=== PATIENT | female | born 1970 | race Caucasian/White ===

== ENCOUNTER 2016-11-12 08:56 | Emergency (ER) | payer BC, OTHER ==
[2016-11-12 09:06] VITALS: BP 131/95
--- NOTE | 2016-11-12 10:26 | UC ---
Abdominal Pain Female HPI - HPI Summary HPI Summary: complaint of LLQ pain thta started last night night and is worsening constant severe pain that starts in LLQ and radiates into LUQ severe constant stabbing pain ast BM this morning -normal - no blood in stool denies feevr and chills denies dysuria, back pain denies nausea and vomiting denies abnormal vaginal discharge hasn't taken any medication for pain LMP 10/23/16 - History of Current Complaint Hx Obtained From: Patient Hx Last Menstrual Period: 10/23/16 <Willa Brady - Last Filed: 11/12/16 10:38> <Meghan Johnson - Last Filed: 11/12/16 11:16> - History of Current Complaint Chief Complaint: UCAbdominalPain Stated Complaint: ABDOMINAL PAIN Time Seen by Provider: 11/12/16 10:21 Allergies/Adverse Reactions: Allergies Allergy/AdvReac Type Severity Reaction Status Date / Time Cephalexin [From Keflex] Allergy Severe Vomiting Verified 11/12/16 11:03 PMH/Surg Hx/FS Hx/Imm Hx Previously Healthy: Yes - Surgical History Surgical History: Yes Surgery Procedure, Year, and Place: C-SECTIONS X2, APPENDECTOMY - Family History Known Family History: Negative: Cardiac Disease, Hypertension, Diabetes - Social History Occupation: Employed Full-time Lives: With Family Alcohol Use: None Substance Use Type: None Smoking Status (MU): Current Every Day Smoker Type: Cigarettes Amount Used/How Often: 1/2 PPD Length of Time of Smoking/Using Tobacco: 20 YEARS Have You Smoked in the Last Year: Yes Cessation Counseling: Patient Advised to Stop <Willa Brady - Last Filed: 11/12/16 10:38> Review of Systems Constitutional: Negative Skin: Negative Eyes: Negative ENT: Negative Respiratory: Negative Cardiovascular: Negative Gastrointestinal: Abdominal Pain Genitourinary: Negative Motor: Negative Neurovascular: Negative Musculoskeletal: Negative Neurological: Negative Psychological: Negative All Other Systems Reviewed And Are Negative: Yes <Willa Brady - Last Filed: 11/12/16 10:38> Physical Exam Triage Information Reviewed: Yes Appearance: Well-Nourished, Ill-Appearing, Pain Distress Vital Signs: Initial Vital Signs Temp 98 F 11/12/16 09:04 Pulse 95 11/12/16 09:04 Resp 16 11/12/16 09:04 BP 131/95 11/12/16 09:04 Pulse Ox 100 11/12/16 09:04 Vital Signs Reviewed: Yes Eyes: Positive: Conjunctiva Clear ENT: Positive: Pharynx normal, TMs normal Neck: Positive: No Lymphadenopathy Respiratory: Positive: Lungs clear, Normal breath sounds, No respiratory distress, No accessory muscle use Cardiovascular: Positive: RRR, No Murmur, Pulses Normal, Brisk Capillary Refill Abdomen Description: Positive: Soft, Guarding, Other: - LLQ tenderness. Negative: CVA Tenderness (R), CVA Tenderness (L), Distended Bowel Sounds: Positive: Present Musculoskeletal: Positive: No Edema Neurological: Positive: Alert Psychological Exam: Normal Skin Exam: Normal <Willa Brady - Last Filed: 11/12/16 10:38> Vital Signs: Initial Vital Signs Temp 98 F 11/12/16 09:04 Pulse 95 11/12/16 09:04 Resp 16 11/12/16 09:04 BP 131/95 11/12/16 09:04 Pulse Ox 100 11/12/16 09:04 <Meghan Johnson - Last Filed: 11/12/16 11:16> Abd Pain Female Course/Dx - Course Course Of Treatment: exam completed. d/t severe LLQ pain that started last night and is worsening will send to ED for further evaluation and treatment. UA normal - Differential Dx/Diagnosis Differential Diagnosis: Diverticulitis, Ovarian Cyst Provider Diagnoses: LLQ abdominal pain <Willa Brady - Last Filed: 11/12/16 10:38> Discharge <Willa Brady - Last Filed: 11/12/16 10:38> <Meghan Johnson - Last Filed: 11/12/16 11:16> - Discharge Plan Condition: Stable Disposition: AGAINST MEDICAL ADVICE Referrals: Max Lugo MD [Primary Care Provider] - Attestation Statement User Type: Provider - I was available for consult. This patient was seen by the SHILPA. The patient was not presented to, seen by, or examined by me. -Donn <Meghan Johnson - Last Filed: 11/12/16 11:16>
== END 2016-11-12 10:49 | disposition left against medical advice (07) ==
LOC: UCEAST 08:56
DX: R10.32 Left lower quadrant pain (principal); F17.210 Nicotine dependence, cigarettes, uncomplicated; Z88.3 Allergy status to other anti-infective agents
CPT/HCPCS: 81003; 99212; G0463

== ENCOUNTER → 2016-11-12 10:57 | Emergency (ER) | payer BC, OTHER ==
[~2016-11-12 10:57] MED LIST: Ciprofloxacin TAB* 500 MG PO ONE; HYDROmorphone* 1 MG/ML 1 ML SYR IV ONE; Iohexol 300* (CONTRAST) 10 ML SDV IV ONE; Ketorolac INJ* 30 MG/ML 1 ML VIAL IV ONE; NS 0.9% 1000 ML* 2,000 ML IV ONE; Ondansetron INJ* 2 MG/ML VIAL IV ONE; metroNIDAZOLE TAB* 250 MG PO ONE
[2016-11-12 12:55] LABS: Hematocrit 34 % (35-47); Hemoglobin 10.7 g/dl (12.0-16.0); Mean Corpuscular HGB Conc 32 g/dl (31-36); Mean Corpuscular Hemoglobin 25 pg (27-31); Mean Corpuscular Volume 80 fL (80-97); Mean Platelet Volume 7 um3 (7.4-10.4); Red Blood Count 4.25 10^6/ul (4.0-5.4); Red Cell Distribution Width 17 % (10.5-15); White Blood Count 14.5 10^3/ul (3.5-10.8)
[2016-11-12 13:49] LABS: Albumin 3.9 g/dL (3.2-5.2); BUN/Creatinine Ratio 14.5 (8-20); C Reactive Protein 73.28 mg/L (< 5.00); Calcium 9.1 mg/dL (8.6-10.3); EGFR African American 118.9 (>60); EGFR Non-African American 92.4 (>60); Globulin 3.1 g/dL (2-4); Potassium 3.6 mmol/L (3.5-5.0); Total Bilirubin 0.7 mg/dL (0.2-1.0)
--- NOTE | 2016-11-12 14:08 | RAD ---
HISTORY: Left lower quadrant pain COMPARISONS: None TECHNIQUE: Multiple transverse and longitudinal ultrasound images were obtained of the pelvis using grayscale, color Doppler, and spectral Doppler imaging using the transabdominal and endovaginal transducers. FINDINGS: UTERUS: The uterus measures 12.1 x 5 x 5.8 cm. There are multiple uterine fibroids. This includes a 2.8 cm subserosal fibroid of anterior body, and other fibroids of the posterior body the are not measured on the submitted images. ENDOMETRIUM: The endometrial stripe is smooth. The endometrium measures 1.5 cm in thickness. CUL-DE-SAC: There is no free fluid within the cul-de-sac. RIGHT OVARY: The right ovary is not well-visualized LEFT OVARY: The left ovary measures 3.5 x 2.3 x 2.7 cm. Normal arterial and venous waveforms are identifiable within the ovary on spectral Doppler imaging. There is an echogenic cystic lesion left ovary suggestive of a hemorrhagic cyst measuring 0.9 x 1.1 x 1.5 cm. BLADDER: The visualized bladder is unremarkable. IMPRESSION: 1. LIMITED STUDY. 2. THE RIGHT OVARY IS NOT WELL-VISUALIZED. 3. FIBROID UTERUS. 4. CYSTIC LESION OF THE LEFT OVARY SUGGESTIVE OF A HEMORRHAGIC CYST MEASURING 1.5 CM IN SIZE. RECOMMEND FOLLOW-UP IMAGING IN 6 WEEKS-12 WEEKS. 5. THE ENDOMETRIUM MEASURES 1.5 CM IN THICKNESS.
--- NOTE | 2016-11-12 15:32 | RAD ---
INDICATION: Left lower quadrant and left flank abdominal pain. COMPARISON: Comparison is made with a prior pelvic ultrasound obtained earlier today. TECHNIQUE: A CT scan of the abdomen and pelvis was performed with intravenous and oral contrast following intravenous injection of 103 ml of Omnipaque 300 nonionic contrast. Contiguous axial sections were obtained from the lung bases through the symphysis pubis. Images were reconstructed in the coronal and sagittal planes. FINDINGS: There is mild dependent bilateral lower lobe subsegmental atelectasis. No pleural effusion is present. The liver and spleen are normal in size without significant focal abnormality. The liver is decreased in attenuation consistent with fatty infiltration. No calcified gallstones are seen. The pancreas appears to be within normal limits. There is a 1.9 x 1.8 x 1.5 cm soft tissue density nodule within the left adrenal gland. The right adrenal gland appears to be within normal limits. The kidneys are normal in size without significant focal abnormality. No hydronephrosis is seen. The aorta is normal in caliber and demonstrates homogeneous contrast opacification. No significant enlarged retroperitoneal lymph nodes are seen. The stomach, small and large bowel appear nondistended. The patient is status post appendectomy by history. There is mild to moderate descending and sigmoid diverticulosis. In addition there is thickening of the wall of the mid descending colon with stranding in the adjacent mesenteric fat and a small amount of adjacent free intraperitoneal fluid. These findings are nonspecific although most consistent with diverticulitis. The uterus is anteverted, mildly enlarged and heterogeneous in density correlating with the previously noted fibroids. There is a 2.2 cm involuting follicular cyst within the left ovary. There is a small amount of free intraperitoneal fluid in the pelvis. No free intraperitoneal air is seen. No significant focal osseous abnormality is seen. IMPRESSION: 1. THICKENING OF THE WALL OF THE DESCENDING COLON, STRANDING IN THE EVENT ADJACENT MESENTERIC FAT AND ADJACENT FREE INTRAPERITONEAL FLUID NONSPECIFIC ALTHOUGH MOST CONSISTENT WITH DIVERTICULITIS. 2. 1.9 CM LEFT ADRENAL NODULE. RECOMMEND FURTHER EVALUATION WITH EITHER A NONCONTRAST CT OF THE ABDOMEN OR A NONCONTRAST MRI OF THE ADRENAL GLANDS. 3. HEPATIC STEATOSIS. 4. FIBROID UTERUS AND INVOLUTING LEFT FOLLICULAR CYST.
--- NOTE | 2016-11-12 16:35 | ED ---
Wade Guadalupe Alfonso, scribed for Baldemar Antoine MD on 11/12/16 at 1208 . Abdominal Pain/Female - HPI Summary HPI Summary: This patient is a 45 year old female presenting referred from [facility] to [facility] c/o sharp LLQ abdominal pain since 1999 last night. The pain radiates to her uterus and has become worse since arriving to the ED. She rates the pain 9/10 in severity. Symptoms aggravated and alleviated my nothing. She denies fever, chills, N/V/D, dysuria, and vaginal discharge. She reports her LNMP was on . She smokes 1/2 PPD. PSHx of caesarean section x2 and appendectomy. - History of Current Complaint Chief Complaint: EDAbdPain Stated Complaint: ABD PAIN Time Seen by Provider: 11/12/16 11:52 Hx Obtained From: Patient Hx Last Menstrual Period: 10/23/16 Pain Intensity: 9 Pain Scale Used: 0-10 Numeric Location: Discrete At: LLQ Radiates: Yes Radiates to: Other - uterus Character: Sharp Aggravating Factor(s): Nothing Alleviating Factor(s): Nothing Associated Signs and Symptoms: Positive: Other: - Negative fever, chills, N/V/D , dysuria, and vaginal discharge. Allergies/Adverse Reactions: Allergies Allergy/AdvReac Type Severity Reaction Status Date / Time Cephalexin [From Keflex] Allergy Severe Vomiting Verified 11/12/16 11:03 PMH/Surg Hx/FS Hx/Imm Hx - Surgical History Surgery Procedure, Year, and Place: C-SECTIONS X2, APPENDECTOMY Infectious Disease History: No Infectious Disease History: Denies: Hx Clostridium Difficile, Hx Hepatitis, Hx Human Immunodeficiency Virus (HIV), Hx of Known/Suspected MRSA, Hx Shingles, Hx Tuberculosis, Hx Known/ Suspected VRE, Hx Known/Suspected VRSA, History Other Infectious Disease, Traveled Outside the [place] in Last 30 Days - Family History Known Family History: Negative: Cardiac Disease, Hypertension, Diabetes - Social History Alcohol Use: None Substance Use Type: Reports: None Smoking Status (MU): Current Every Day Smoker Type: Cigarettes Amount Used/How Often: 1/2 PPD Length of Time of Smoking/Using Tobacco: 20 YEARS Have You Smoked in the Last Year: Yes Review of Systems Negative: Fever, Chills Positive: Abdominal Pain - sharp LLQ abdominal pain since 1999 last night that radiates to her "uterus". Negative: Vomiting, Diarrhea, Nausea Positive: other - Negative vaginal discharge. Negative: dysuria All Other Systems Reviewed And Are Negative: Yes Physical Exam Triage Information Reviewed: Yes Vital Signs On Initial Exam: Initial Vitals Temp Pulse Resp BP Pulse Ox 98.4 F 86 18 127/72 100 11/12/16 10:58 11/12/16 10:58 11/12/16 10:58 11/12/16 10:58 11/12/16 10:58 Vital Signs Reviewed: Yes Appearance: Positive: Well-Appearing, Pain Distress - Moderate pain distress Skin: Positive: Warm, Skin Color Reflects Adequate Perfusion, Dry Head/Face: Positive: Normal Head/Face Inspection Eyes: Positive: EOMI, YAYA ENT: Positive: Normal ENT inspection Neck: Positive: Supple, Nontender Respiratory/Lung Sounds: Positive: Clear to Auscultation, Breath Sounds Present Cardiovascular: Positive: RRR Abdomen Description: Positive: Other: - LLQ tender to palpation Bowel Sounds: Positive: Hypoactive Musculoskeletal: Positive: Normal, Strength/ROM Intact Neurological: Positive: Normal, Sensory/Motor Intact, Alert, Oriented to Person Place, Time Psychiatric: Positive: Affect/Mood Appropriate Diagnostics - Vital Signs Vital Signs Temp Pulse Resp BP Pulse Ox 11/12/16 10:58 98.4 F 88 16 127/72 100 - Laboratory Lab Results: Lab Results 11/12/16 11/12/16 11/12/16 Range/Units 12:35 12:35 12:35 WBC 14.5 H (3.5-10.8) 10^3/ul RBC 4.25 (4.0-5.4) 10^6/ul Hgb 10.7 L (12.0-16.0) g/dl Hct 34 L (35-47) % MCV 80 (80-97) fL MCH 25 L (27-31) pg MCHC 32 (31-36) g/dl RDW 17 H (10.5-15) % Plt Count 261 (150-450) 10^3/ul MPV 7 L (7.4-10.4) um3 Neut % (Auto) 78.9 (38-83) % Lymph % (Auto) 10.9 L (25-47) % Emmons % (Auto) 9.8 H (1-9) % Eos % (Auto) 0.2 (0-6) % Baso % (Auto) 0.2 (0-2) % Absolute Neuts (auto) 11.5 H (1.5-7.7) 10^3/ul Absolute Lymphs (auto) 1.6 (1.0-4.8) 10^3/ul Absolute Monos (auto) 1.4 H (0-0.8) 10^3/ul Absolute Eos (auto) 0 (0-0.6) 10^3/ul Absolute Basos (auto) 0 (0-0.2) 10^3/ul Absolute Nucleated RBC 0 10^3/ul Nucleated RBC % 0 INR (Anticoag Therapy) 0.95 (0.89-1.11) APTT 28.4 (26.0-36.3) seconds Sodium 136 (133-145) mmol/L Potassium 3.6 (3.5-5.0) mmol/L Chloride 105 (101-111) mmol/L Carbon Dioxide 23 (22-32) mmol/L Anion Gap 8 (2-11) mmol/L BUN 10 (6-24) mg/dL Creatinine 0.69 (0.51-0.95) mg/dL Est GFR ( Amer) 118.9 (>60) Est GFR (Non-Af Amer) 92.4 (>60) BUN/Creatinine Ratio 14.5 (8-20) Glucose 94 (70-100) mg/dL Lactic Acid (0.5-2.0) mmol/L Calcium 9.1 (8.6-10.3) mg/dL Total Bilirubin 0.70 (0.2-1.0) mg/dL AST 19 (13-39) U/L ALT 15 (7-52) U/L Alkaline Phosphatase 60 (34-104) U/L C-Reactive Protein 73.28 H (< 5.00) mg/L Total Protein 7.0 (6.4-8.9) g/dL Albumin 3.9 (3.2-5.2) g/dL Globulin 3.1 (2-4) g/dL Albumin/Globulin Ratio 1.3 (1-3) Lipase 12 (11.0-82.0) U/L Beta HCG, Quant 0.68 mIU/mL 11/12/16 Range/Units 12:35 WBC (3.5-10.8) 10^3/ul RBC (4.0-5.4) 10^6/ul Hgb (12.0-16.0) g/dl Hct (35-47) % MCV (80-97) fL MCH (27-31) pg MCHC (31-36) g/dl RDW (10.5-15) % Plt Count (150-450) 10^3/ul MPV (7.4-10.4) um3 Neut % (Auto) (38-83) % Lymph % (Auto) (25-47) % Emmons % (Auto) (1-9) % Eos % (Auto) (0-6) % Baso % (Auto) (0-2) % Absolute Neuts (auto) (1.5-7.7) 10^3/ul Absolute Lymphs (auto) (1.0-4.8) 10^3/ul Absolute Monos (auto) (0-0.8) 10^3/ul Absolute Eos (auto) (0-0.6) 10^3/ul Absolute Basos (auto) (0-0.2) 10^3/ul Absolute Nucleated RBC 10^3/ul Nucleated RBC % INR (Anticoag Therapy) (0.89-1.11) APTT (26.0-36.3) seconds Sodium (133-145) mmol/L Potassium (3.5-5.0) mmol/L Chloride (101-111) mmol/L Carbon Dioxide (22-32) mmol/L Anion Gap (2-11) mmol/L BUN (6-24) mg/dL Creatinine (0.51-0.95) mg/dL Est GFR ( Amer) (>60) Est GFR (Non-Af Amer) (>60) BUN/Creatinine Ratio (8-20) Glucose (70-100) mg/dL Lactic Acid 0.9 (0.5-2.0) mmol/L Calcium (8.6-10.3) mg/dL Total Bilirubin (0.2-1.0) mg/dL AST (13-39) U/L ALT (7-52) U/L Alkaline Phosphatase (34-104) U/L C-Reactive Protein (< 5.00) mg/L Total Protein (6.4-8.9) g/dL Albumin (3.2-5.2) g/dL Globulin (2-4) g/dL Albumin/Globulin Ratio (1-3) Lipase (11.0-82.0) U/L Beta HCG, Quant mIU/mL Result Diagrams: 11/12/16 12:35 11/12/16 12:35 Lab Statement: Any lab studies that have been ordered have been reviewed, and results considered in the medical decision making process. - CT CT A/P CT Interpretation Completed By: Radiologist - 1. THICKENING OF THE WALL OF THE DESCENDING COLON, STRANDING IN THE EVENT ADJACENT MESENTERIC FAT AND ADJACENT FREE INTRAPERITONEAL FLUID NONSPECIFIC ALTHOUGH MOST CONSISTENT WITH DIVERTICULITIS. 2. 1.9 CM LEFT ADRENAL NODULE. RECOMMEND FURTHER EVALUATION WITH EITHER A NONCONTRAST CT OF THE ABDOMEN OR A NONCONTRAST MRI OF THE ADRENAL GLANDS. 3. HEPATIC STEATOSIS. 4. FIBROID UTERUS AND INVOLUTING LEFT FOLLICULAR CYST. - Additional Comments Diagnostic Additional Comments: US TRANSVAGINAL : 1. LIMITED STUDY. 2. THE RIGHT OVARY IS NOT WELL- VISUALIZED. 3. FIBROID UTERUS. 4. CYSTIC LESION OF THE LEFT OVARY SUGGESTIVE OF A HEMORRHAGIC CYST MEASURING 1.5 CM IN SIZE. RECOMMEND FOLLOW-UP IMAGING IN 6 WEEKS-12 WEEKS. 5. THE ENDOMETRIUM MEASURES 1.5 CM IN THICKNESS. Abdominal Pain Fem Course/Dx - Course Course Of Treatment: NO CRITICAL CARE TIME. DISCUSSED RESULTS WITH PATIENT/ MOTHER. DISCUSSED ADMISSION VERSES OUT PATIENT TREATMENT. PATIENT PREFERS OUT PATIENT TREATMENT; WILL RETURN IF WORSE. DISCHARGE HOME STABLE. - Diagnoses Provider Diagnoses: Diverticulitis, Hemorrhagic cyst of left ovary Discharge - Discharge Plan Condition: Stable Disposition: HOME Prescriptions: Ciprofloxacin TAB* [Cipro 500 MG TAB*] 500 mg PO BID #20 tab Metronidazole [Flagyl 500 MG TAB] 500 mg PO QID #40 tab Ondansetron ODT TAB* [Zofran 4 MG Odt TAB*] 4 mg PO Q6H PRN #10 tab.odt PRN Reason: Nausea oxyCODONE/Acetamin 5/325 MG* [Percocet 5/325 TAB*] 1 tab PO Q4H PRN #20 tab MDD 6 PRN Reason: Pain Patient Education Materials: Diverticulitis (ED), Diverticulitis Diet (ED), Ovarian Cyst (ED) Forms: *Work Release Referrals: Max Lugo MD [Primary Care Provider] - Additional Instructions: FOLLOW UP WITH YOUR DOCTOR. RETURN TO THE EMERGENCY DEPARTMENT FOR ANY WORSENING OF YOUR CONDITION; PAIN, FEVER, VOMITING, YOU FEEL ILL, YOU FEEL LIKE PASSING OUT OR QUESTIONS OR CONCERNS. The documentation as recorded by the Wade lópez Alfonso accurately reflects the service I personally performed and the decisions made by me, Baldemar Antoine MD.
[2016-11-12 17:03] VITALS: BP 144/69
== END | disposition home or self-care (01) ==
LOC: ED 10:57
DX: R11.2 Nausea with vomiting, unspecified (principal); R50.9 Fever, unspecified; R53.1 Weakness; R19.7 Diarrhea, unspecified; R51 Headache; R05 Cough; J02.9 Acute pharyngitis, unspecified; Z87.891 Personal history of nicotine dependence; R53.83 Other fatigue
CPT/HCPCS: 36415; 74177; 76830; 80053; 83605; 83690; 84702; 85025; 85610; 85730; 86140; 96374; 99282; A9270-GY; J1170; J1885; J2405; Q9967

== ENCOUNTER 2018-04-22 14:26 | Emergency (ER) | payer BC, OTHER ==
--- NOTE | 2018-04-22 15:17 | ED ---
Influenza-Like Illness - HPI Summary HPI Summary: 47 y/o female presents to [facility] with a chief complaint of flu like symptoms since 04/15/18. She denies any current pain, rating her pain as 0/10. The patient claims that she felt SOB and has a cough bringing up white phlegm. She denies sore-throat, fevers, chills and CP. She is a former smoker and drinks alcohol, but denies drug use. She denies any other Hx but states that she has a FHx of cardiac disease and cancer. - History of Current Complaint Chief Complaint: EDFluSymptoms Time Seen by Provider: 04/22/18 15:00 Hx Obtained From: Patient Onset/Duration: Sudden Onset, Lasting Days, Still Present Severity: Moderate Associated Signs & Symptoms: Cough - Allergy/Home Medications Allergies/Adverse Reactions: Allergies Allergy/AdvReac Type Severity Reaction Status Date / Time cephalexin Allergy Vomiting Verified 04/22/18 15:10 PMH/Surg Hx/FS Hx/Imm Hx Endocrine/Hematology History: Denies: Hx Diabetes Cardiovascular History: Denies: Hx Hypercholesterolemia, Hx Hypertension - Surgical History Surgery Procedure, Year, and Place: C-SECTIONS X2, APPENDECTOMY Infectious Disease History: No Infectious Disease History: Denies: Hx Clostridium Difficile, Hx Hepatitis, Hx Human Immunodeficiency Virus (HIV), Hx of Known/Suspected MRSA, Hx Shingles, Hx Tuberculosis, Hx Known/ Suspected VRE, Hx Known/Suspected VRSA, History Other Infectious Disease, Traveled Outside the [place] in Last 30 Days - Family History Known Family History: Positive: Cardiac Disease, Other - cancer Negative: Hypertension, Diabetes - Social History Alcohol Use: Occasionally Substance Use Type: Reports: None Smoking Status (MU): Former Smoker Type: Cigarettes Amount Used/How Often: 1/2 PPD Length of Time of Smoking/Using Tobacco: 20 YEARS Have You Smoked in the Last Year: Yes Review of Systems Negative: Fever, Chills Negative: Sore Throat Negative: Chest Pain Positive: Shortness Of Breath, Cough All Other Systems Reviewed And Are Negative: Yes Physical Exam - Summary Physical Exam Summary: VITAL SIGNS: Reviewed. GENERAL: Patient is a well-developed and nourished FEMALE who is lying comfortable in the stretcher. Patient is not in any acute respiratory distress. HEAD AND FACE: No signs of trauma. No ecchymosis, hematomas or skull depressions. No sinus tenderness. EYES: PERRLA, EOMI x 2, No injected conjunctiva, no nystagmus. EARS: Hearing grossly intact. Ear canals and tympanic membranes are within normal limits. MOUTH: Oropharynx within normal limits. NECK: Supple, trachea is midline, no adenopathy, no JVD, no carotid bruit, no c- spine tenderness, neck with full ROM. CHEST: Symmetric, no tenderness at palpation LUNGS: Right lower lobe crackles, dysphonia CVS: Regular rate and rhythm, S1 and S2 present, no murmurs or gallops appreciated. ABDOMEN: Soft, non-tender. No signs of distention. No rebound no guarding, and no masses palpated. Bowel sounds are normal. EXTREMITIES: FROM in all major joints, no edema, no cyanosis or clubbing. NEURO: Alert and oriented x 3. No acute neurological deficits. Speech is normal and follows commands. SKIN: Dry and warm Triage Information Reviewed: Yes Vital Signs On Initial Exam: Initial Vitals Temp Pulse Resp BP Pulse Ox 99.2 F 115 20 119/73 93 04/22/18 14:41 04/22/18 14:41 04/22/18 14:41 04/22/18 14:41 04/22/18 14:41 Vital Signs Reviewed: Yes Diagnostics - Vital Signs Vital Signs Temp Pulse Resp BP Pulse Ox 04/22/18 14:41 99.2 F 115 20 119/73 93 - Laboratory Result Diagrams: 04/22/18 15:22 04/22/18 15:22 Lab Statement: Any lab studies that have been ordered have been reviewed, and results considered in the medical decision making process. - Radiology CXR Radiology Interpretation Completed By: Radiologist Summary of Radiographic Findings: IMPRESSION: RIGHT UPPER AND LOWER LOBE INFILTRATES. ED physician has reviewed this imaging report. Re-Evaluation - Re-Evaluation First Eval Re-Evaluation Time: 16:30 Change: Improved Comment: Patient is ready for discharge. Flu Symptom Course/Dx - Course Assessment/Plan: 47 y/o female presents to [facility] with a chief complaint of flu like symptoms since 04/15/18. She denies any current pain, rating her pain as 0/ 10. The patient claims that she felt SOB and has a cough bringing up white phlegm. She denies sore-throat, fevers, chills and CP. She is a former smoker and drinks alcohol, but denies drug use. She denies any other Hx but states that she has a FHx of cardiac disease and cancer. Blood work without any significant abnormality except for potassium level of 3.1 and C-reactive protein 129. Chest x-ray shows right upper and lower lobe pneumonia. In the ED course the patient was given Levaquin and potassium for the hypokalemia. At this point I discussed all the findings and test results and the patient will be discharged home with follow-up with PCP. Given. CURB 65: is 0 therefore, again to the patient as an outpatient. Patient was given instructions to return to the emergency department if she develops any fever, chest pain, lethargy, decreased appetite, nausea and vomiting. The patient understands and agrees. At this point the patient is hemodynamically stable alert and oriented 3. - Diagnoses Provider Diagnoses: PNA (pneumonia) Discharge - Sign-Out/Discharge Documenting (check all that apply): Patient Departure - DC - Discharge Plan Condition: Stable Disposition: HOME Prescriptions: Levofloxacin TAB* [Levaquin TAB*] 750 mg PO DAILY #9 tab Referrals: Max Lugo MD [Primary Care Provider] - 3 Days () Additional Instructions: Return to the ED for any new or worsening symptoms. - Billing Disposition and Condition Condition: STABLE Disposition: Home - Attestation Statements Document Initiated by Arvin: Yes Documenting Scribe: Satnam Mendoza Provider For Whom Arvin is Documenting (Include Credential): Yury Mujica MD Scribe Attestation: Satnam Guadalupe scribed for Yury Mujica MD on 04/22/18 at 2108. Scribe Documentation Reviewed: Yes Provider Attestation: The documentation as recorded by the Satnam lópez accurately reflects the service I personally performed and the decisions made by me, Yury Mujica MD Status of Scribkatie Document: Viewed
[2018-04-22] MEDS ORDERED: Potassium Chlor TAB* 20 MEQ TAB.ER PO ONE (16:17)
[2018-04-22] MEDS ORDERED: Levofloxacin TAB* 250 MG PO ONE (16:30)
[2018-04-22 16:53] VITALS: BP 127/64
[2018-04-22 17:00] LABS: Hematocrit 27 % (35-47); Hemoglobin 7.8 g/dl (12.0-16.0); Mean Corpuscular HGB Conc 30 g/dl (31-36); Mean Corpuscular Hemoglobin 19 pg (27-31); Mean Corpuscular Volume 65 fL (80-97); Mean Platelet Volume 7.2 fL (7.4-10.4); Platelet Count 457 10^3/ul (150-450); Red Blood Count 4.07 10^6/ul (4.00-5.40); Red Cell Distribution Width 20 % (10.5-15); White Blood Count 9.3 10^3/ul (3.5-10.8)
[2018-04-22 17:03] LABS: ABS Neutrophils 7.44 10^3/ul (1.5-7.7); Monocytes % 9 %
== END 2018-04-22 16:52 | disposition home or self-care (01) ==
LOC: ED 14:26
DX: J18.9 Pneumonia, unspecified organism (principal); Z87.891 Personal history of nicotine dependence
CPT/HCPCS: 36415; 71046; 80053; 83605; 85025; 85060; 86140; 87040; 99282; A9270-GY

== ENCOUNTER 2019-06-16 13:01 | Observation (INO) | payer BC, MEDICAID ==
[2019-06-16] MEDS ORDERED: Clindamycin 900 MG/D5W BAG(*) 900 MG/50 ML BAG IVPB ONE (14:00)
[2019-06-16] MEDS ORDERED: Naproxen TAB* 250 MG ONE (15:13)
[2019-06-16] MEDS ORDERED: Ondansetron INJ* 2 MG/ML VIAL ONE (15:13)
[2019-06-16] MEDS ORDERED: Scopolamine 1.5 mg* PATCH ONE (15:13)
[2019-06-16] MEDS ORDERED: LORazepam TAB(*) 1 MG ONE (15:14)
[2019-06-16] MEDS ORDERED: oxyCODONE SR TAB(*) 10 MG TAB.SR ONE (15:14)
[2019-06-16] MEDS ORDERED: Flumazenil* 0.1 MG/ML 5 ML MDV ONE ×2 (15:43→16:08)
[2019-06-16] MEDS ORDERED: Naloxone* 0.4 MG/ML 1 ML VIAL ONE ×2 (15:43→16:08)
[2019-06-16] MEDS ORDERED: Lidocaine 1% INJ* 10 MG/ML 30 ML SDV ONE (15:46)
[2019-06-16] MEDS ORDERED: Iohexol 350 (CONTRAST) 200 ML MDV IV ONE (15:46)
[2019-06-16] MEDS ORDERED: Heparin 2 UNITS/ML IVPREMIX* 2,000 ML IV ONE (15:47)
[2019-06-16] MEDS ORDERED: nitroGLYCERIN DRIP* 25,000 MCG/250 ML BTL ONE (16:05)
[2019-06-16] MEDS ORDERED: Ketorolac INJ* 30 MG/ML 1 ML VIAL ONE ×2 (16:06→17:02)
[2019-06-16] MEDS ORDERED: fentaNYL* 50 MCG/ML 5 ML VIAL (250 MCG VIAL) ONE (16:08)
[2019-06-16] MEDS ORDERED: Midazolam* 1 MG/ML 5 ML VIAL (5 MG) ONE (16:09)
[2019-06-16] MEDS ORDERED: HYDROmorphone PCA* 20 MG/20 ML PCA.SYRING ONE (17:32)
[2019-06-16] MEDS ORDERED: HYDROmorphone INJ1* 1 MG/ML SYRINGE ONE (17:46)
[2019-06-16] MEDS ORDERED: HYDROmorphone PCA 1 MG/ML Titrat per Protocol PCA SCH (18:00)
--- NOTE | 2019-06-16 19:12 | PN ---
Progress Note - Progress Note Date of Service: 06/16/19 SOAP: Subjective: Patient rates pain at 6/10, but also falls asleep easily. Denies nausea or emesis. Objective: Selected Entries 06/16/19 06/16/19 18:02 18:16 Temperature 98.1 F Pulse Rate 77 Respiratory 16 Rate Blood Pressure 137/82 (mmHg) Blood Pressure 90 Mean O2 Sat by Pulse 98 Oximetry NAD, AAO x 3 Abd is soft, minimally tender to palpation above the symphysis pubis No rebound or guarding Right groin is soft, nontender Dressing over arteriotomy is C/D/I 2+ pulses at right VEGETABLE THINNER and popliteal artery Neuromuscular function of RLE is grossly intact Assessment: 48 YOF s/p uterine fibroid arterial embolization with nausea well controlled and reasonably well controlled pain. Plan: 1. Routine post UFE Interventional Radiology pain & nausea control. 2. Patient was reminded to use GAMBLING BROKER for pain. 3. Bedrest until 2300 with right leg straight. 4. Head of bed may come up 30 degrees. 5. Advance PO diet cautiously.
[2019-06-16] MEDS ORDERED: Acetaminophen TAB* 325 MG PO PRN (19:16)
[2019-06-16] MEDS ORDERED: NS 0.9% 1000 ML** 1,000 ML IV SCH (21:00)
[2019-06-16] MEDS: Docusate CAP* 100 MG PO SCH (21:49)
[2019-06-16] MEDS: Ondansetron INJ* 2 MG/ML VIAL IV SCH (23:06)
[2019-06-16] MEDS: Ketorolac INJ* 15 MG/ML 1 ML VIAL IV PUSH SCH (23:06)
--- NOTE | 2019-06-17 03:32 | HP ---
ADMISSION HISTORY AND PHYSICAL: DATE OF ADMISSION: 06/16/19 PRIMARY CARE PROVIDER: Dr. Lugo. ATTENDING PHYSICIAN: Dr. Ramires * (dictated by Derick Abrams, CECELIA). CHIEF COMPLAINT: Periods for 3 weeks. HISTORY OF PRESENT ILLNESS: Ms. Arauz is a 48-year-old female, who presented today for an elective procedure, performed by Dr. Rondon, in relation to her DUB. She states that she would have periods for 3 weeks at a time. Currently complaining of 8/10 lower abdominal cramping. States she does not want to use her pain pump. Denies any recent fever, chills, visual changes, chest pain, palpitations, shortness of breath, nausea, vomiting, diarrhea, difficulty urinating, blood in the stool or urine, muscle aches, joint aches, rashes, or lesions. She denies any concerns at this time. While in the recovery room, the patient's vital signs have remained stable. She is currently on 2 L of oxygen. Hospital Medicine was asked to evaluate the patient for admission. The patient states the surrogate decision maker for her would be her boyfriend, John Del Cid, phone number [phone]. PAST MEDICAL HISTORY: 1. Migraines. 2. DUB. PAST SURGICAL HISTORY: 1. x2. 2. Appendectomy. HOME MEDICATIONS: 1. Multivitamin daily. 2. Ferrous sulfate 325 mg p.o. daily. 3. Imitrex 25 mg p.o. p.r.n. for migraines. ALLERGIES: CEPHALEXIN. FAMILY HISTORY: Father with hypertension. Mother with colon cancer and breast cancer x2. Maternal grandmother with breast cancer. SOCIAL HISTORY: The patient has a boyfriend, John. They live together off and on. She has 2 children. She smoked 1 pack per day of tobacco for approximately 10 years. States she drinks a few drinks 2X/week. Denies any illicit drug use. REVIEW OF SYSTEMS: A 10-point review of systems was completed with this patient. Please see HPI for all pertinent positives and negatives. PHYSICAL EXAMINATION CONSTITUTIONAL: The patient is slightly sedated, lying flat in bed, exhibiting signs of mild discomfort. VITAL SIGNS: Last vital signs: Temp 98.1, heart rate 77, respiratory rate 16, O2 sat 98% on 2 L via nasal cannula, blood pressure 137/82. HEENT: PERRL. No scleral icterus noted. LYMPHATIC: No anterior cervical lymphadenopathy noted. RESPIRATORY: Lung sounds clear throughout bilaterally. Normal rate and effort. CARDIOVASCULAR: Heart rate regular. S1, S2 present. No murmurs, rubs, or gallops. GI: Bowel sounds throughout, hypoactive. Lower mid abdomen tender to palpation. Otherwise, soft and nontender. : clear yellow urine noted in sexton catheter bag NEURO: Lightly sedated, oriented x3. SKIN: Access sheath site to the right groin covered with small dressing. No drainage or bruising noted. Small, approximately 1.5-2cm sized knot noted just above the dressing. LABORATORY DATA: Beta hCG negative. ASSESSMENT AND PLAN: Ms. Arauz is a pleasant 48-year-old female with past medical history significant for dysfunctional uterine bleeding and migraines. She presented today to have an elective procedure performed by Dr. Rondon in relation to her dysfunctional uterine bleeding. Hospital Medicine was asked to evaluate the patient for admission. 1. Status post uterine fibroid embolization. Sheath access site, pain management, catheter management, and IV fluids per Dr. Rondon. Per nursing the small knot above her dressing has been present and has not increased in size since her arrival to the PACU, recently assessed by proceduralist. Hospital Medicine will continue to follow and monitor. 2. Migraines. Chronic issue. The patient denies at this time. Already receiving pain medication p.r.n. May continue usual medications. 3. FEN: May continue with regular diet and IV fluids as ordered. 4. Code status: Full code. 5. DVT prophylaxis: SCDs. TIME SPENT: Approximately 45 minutes was spent on this admission with half of that [id number] with the patient and her boyfriend for interview, exam, and discussing plan of care. Case reviewed by my attending physician, Dr. Ramires, and he agrees with the plan. DERICK ABRAMS NP [id number]/CPS #: [id number] LEONA
[2019-06-17] MEDS: Ondansetron INJ* 2 MG/ML VIAL IV SCH (05:07)
[2019-06-17] MEDS: Ketorolac INJ* 15 MG/ML 1 ML VIAL IV PUSH SCH (05:07)
[2019-06-17] MEDS: Docusate CAP* 100 MG PO SCH (08:51)
[2019-06-17] MEDS ORDERED: Ferrous Sulfate TAB* 325 MG PO SCH (09:00)
[2019-06-17] MEDS ORDERED: Multivitamins/Minerals TAB PO SCH (09:00)
--- NOTE | 2019-06-17 09:20 | PN ---
Progress Note - Progress Note Date of Service: 06/17/19 SOAP: Subjective: Pain controlled at 4/10. Denies nausea or emesis. Has eaten breakfast. +void several times. Ambulates independently without issue. Wants to go home. Objective: Selected Entries 06/17/19 08:09 Temperature 98.9 F Pulse Rate 68 Respiratory 14 Rate Blood Pressure 115/63 (mmHg) Blood Pressure 80 Mean O2 Sat by Pulse 96 Oximetry NAD, AAO x 3 Abd is minimally tender, but soft. No rebound or guarding. Right groin is soft, NT. Dressing is C/D/I. 2+ pulse at right [employer] and pop Assessment: 48 yof POD #1 s/p Uterine Fibroid Arterial Embolization with pain and nausea controlled. Plan: 1. Transition IV to PO meds. 2. Anticipate DC to home. 3. Outpatient medications as follows: Toradol 10 mg PO Q 6 hours x 3 days (Dispense #15 with one refill) AFTER Toradol is complete: Ibuprofen 400 mg PO Q 6 hours OR Naprosyn 225 mg PO Q 8 hours for 3-5 days (do not take both) Vashon 5/325, take 1 or 2 tablets by mouth Q 6 hours PRN breakthrough pain ( Dispense #40) Zofran 4 mg PO Q 6 hours x 7 days (Dispense #30 with one refill) Scopolamine 1.5 mg transdermal to mastoid process. On 06/19/19 at 900 AM, remove current patch, replace with new patch and wear x 3 days. Drink one cup of laxative tea daily (For example, "Smooth Move") for one week.
[2019-06-17] MEDS ORDERED: HYDROcodone/ACETAMIN 5-325 MG* 1 TAB PO PRN (09:21)
[2019-06-17] MEDS ORDERED: Ketorolac TAB * 10 MG TAB PO SCH (10:00)
[2019-06-17] MEDS ORDERED: Ondansetron TAB* 4 MG PO SCH (10:00)
[2019-06-17 11:54] VITALS: BP 121/62
--- NOTE | 2019-06-17 18:45 | DS ---
CC: Dr. Max Lugo; Dr. Len Rondon * DISCHARGE SUMMARY: DATE OF ADMISSION: 06/16/19 DATE OF DISCHARGE: 06/17/19 PRIMARY CARE PROVIDER: Dr. Max Lugo. OTHER PROVIDER: Dr. Len Rondon. ATTENDING PHYSICIAN: Dr. Airam Pollack * (dictated by JAYLYN Rodríguez). PRIMARY DIAGNOSIS: Status post uterine fibroid arterial embolization. SECONDARY DIAGNOSES: 1. Migraine. 2. Dysfunctional uterine bleeding. PROCEDURE WHILE IN THE HOSPITAL: Uterine fibroid arterial embolization, , performed by Dr. Len Rondon. DISCHARGE MEDICATIONS: Home medications: 1. Ferrous sulfate 325 mg p.o. daily. 2. Multivitamin 1 tab p.o. daily. New home medications: 1. Hydrocodone/acetaminophen 5/325 one to two tabs p.o. q.6 hours p.r.n. breakthrough pain, MDD 8. 2. Ketorolac 10 mg p.o. q.6 hours p.r.n. pain. 3. Ondansetron 4 mg p.o. q.6 hours p.r.n. nausea. 4. Scopolamine 1.5 mg patch 1 patch transdermally q.72 hours. HISTORY OF PRESENT ILLNESS/HOSPITAL COURSE: Ms. Arauz is a 48-year-old female with a past medical history of migraines and dysfunctional uterine bleeding, who presented to [facility] on 06/16/19 for a uterine fibroid arterial embolization with Dr. Rondon. The patient was admitted overnight for monitoring and pain control. For full and complete details, please see the history and physical dictated by Lindsay Hill NP. The day following her surgery, the patient reports that she is tired and notes that she has had little sleep overnight due to noisy hospital setting. She reports a 2 to 3/10 pain and reports that she has been up walking without difficulty. She has not had a bowel movement today , but she is eating and drinking well. She has no complaints. She did have an episode of mild dizziness that resolved shortly after it began and has not recurred. She also noted that she had 1 episode of vomiting this morning, which again also has not recurred. She denies abdominal pain, nausea, diarrhea. She denies vision changes, difficulty speaking or swallowing, chest pain, shortness of breath, cough, fever, chills, myalgias, or arthralgias. Ms. Arauz's pain is well controlled with medication. She is eager for discharge home. Ms. Arauz is stable for discharge home. Dr. Rondon recommends discharge of this patient. PHYSICAL EXAMINATION: Vital Signs: Temperature 98.3 oral, heart rate 61, respiratory rate 16, oxygen saturation 95% on room air, blood pressure 121/62. General: Ms. Arauz is a well-developed, well-nourished, middle-aged white woman, who is overweight. She is sitting up in bed. She appears to be in no acute distress. She is pleasant and cooperative. HEENT: PERRL. EOMI. Peripheral visual rodrigues intact. Hearing is grossly intact. Oral mucous membranes are moist. There are no lesions. The pharynx is clear. The tongue is at midline. Palate elevates symmetrically. Cardiovascular: Regular rate and rhythm with S1, S2 present. No murmurs, rubs, clicks, or gallops. There is no JVD or peripheral edema. Pulmonary: Symmetrical chest expansion. No use of accessory muscles. Clear to auscultation bilaterally without rhonchi, wheeze, or rales. Abdomen: Bowel sounds in all quadrants. Soft with mild suprapubic tenderness. Otherwise, nontender. There is a clean, dry, and intact dressing in place to the right groin at the site of surgical entry. There is no surrounding erythema or ecchymosis. Neuro: The patient is awake. She is alert and oriented x3. Cranial nerves XII through XII are grossly intact. She moves all of her extremities. DISCHARGE PLAN: Ms. Arauz will be discharged to home. CONDITION: Good. DIET: Resume home diet. ACTIVITY: 1. You may resume showering, but avoid tub baths, hot tubs, or swimming for 1 week. 2. Avoid strenuous exercise and activity for 1 week. 3. Slowly increase your activity after the first week. 4. Pelvic rest for 4 weeks: Avoid vaginal intercourse and tampon usage. 5. Do not drive until you are no longer taking prescription pain medications. EDUCATION: 1. Please see uterine fibroid embolization discharge instructions provided by Dr. Rondon. 2. If you have any questions that are not answered by these instructions, please call Dr. Rondon or you may contact your ticket dispatcher at his/her office. 3. If you are having an emergency and require immediate care, please call 911. This is a summarized report of a complex medical history and hospital stay. For further details, please see the entire medical record. TIME SPENT: Approximately 30 minutes was spent on this discharge, greater than half that time was spent [id number] with the patient discussing discharge plans and instructions. JAYLYN LAURA [id number]/CPS #: [id number] LEONA
== END 2019-06-17 13:16 | disposition home or self-care (01) ==
LOC: CHICATH 13:01 → SSU 19:16
PROVIDERS: ADMIT Nurse Practitioner Family; ATTEND Radiology Diagnostic Radiology
DX: N93.8 Other specified abnormal uterine and vaginal bleeding (principal); D25.9 Leiomyoma of uterus, unspecified; N92.4 Excessive bleeding in the premenopausal period; G43.909 Migraine, unspecified, not intractable, without status migrainosus; Z79.899 Other long term (current) drug therapy; Z88.1 Allergy status to other antibiotic agents; R10.2 Pelvic and perineal pain; F17.210 Nicotine dependence, cigarettes, uncomplicated
CPT/HCPCS: 36415; 37243; 75736; 76937; 84702; 96374; 96375; 96376; 99156; 99157; A9270-GY; C1769; C1884; C1887; C1894; G0378; J1170; J1644; J1885; J2250; J2310; J2405; J3010